=== PATIENT | male | born 1950 | race Caucasian/White ===

== ENCOUNTER 2017-09-01 01:43 | Inpatient (IN) | payer OTHER, MEDICARE ==
[~2017-09-01] VITALS: Ht 175.3 cm; Wt 85.3 kg
[~2017-09-01 01:43] MED LIST: ASPIRIN EC81 M1 PO; C-10001000 MG PO; FINASTERIDE5 M1 PO; FOLIC ACID0.4 M1 PO; GLUCOSAMINE-CH1 EA33 PO; HUMIRA PEN40 MG/0.8 SC; LIPITOR10 M1 PO; METHOTREXATE2.5 M2 PO; MULTIVITAMINS1 EAC9 PO; PREDNISONE5 M1 PO
[2017-09-01] MEDS ORDERED: PERCOCET 5-3251 EACH PO (12:35)
[2017-09-01] MEDS ORDERED: ELIQUIS2.5 M1 PO (12:35)
--- NOTE | 2017-09-01 12:38 | Patient Discharge Instructions ---
Discharge Instructions General Discharge Information You were seen/treated for: Left knee pain related to unilateral primary osteoarthritis You had these procedures: Left total knee replacement Watch for these problems: Increasing pain despite the use of pain medication Increasing redness, warmth or swelling Drainage of any type from incision Inability to bear weight on operative leg Persistent nausea and vomiting Fever greater than 101.5 degrees Call Surgeon to remove: Broadus, two weeks Do not soak the wound: Yes No bath, but you may shower: Yes Other wound care: Please keep wound clean and dry. No ointments or lotions of any type on or near incision at any time. No exceptions. Your dressing will be changed by your nurse on the second day after your surgery. Daily dry dressing changes are recommended each day thereafter. Do not soak your wound in a bath at any time until otherwise indicated by your surgeon. You may shower, please dry wound immediately after shower with a clean towel. Special Instructions: Constipation: Pain medication can cause constipation. Dr. Muir has recommended that you take Colace and miralax each day. You may discontinue this medication if you develop loose stool or diarrhea. If you wish to continue this medication, it is available over the counter. If you are unable to move your bowels after several days, if you are unable to pass gas and are developing bloating, nausea, or vomiting as a result, please contact your doctor. Please avoid taking more than 4000 mg of tylenol (acetaminophen) in one day. If the percocet does not provide enough pain relief, you may take ibuprofen, no more than 1200 mg daily,(400 mg three times per day). Please keep in mind that you are taking a strong blood thinning medication (Eliquis) and ibuprofen or any other NSAID will put you at risk of bleeding and also ulcer development. I have given you an rx for prilosec to be taken daily to protect your stomach from the potential damage ibuprofen can cause. Please contact DR. Muir's office for a refill of pain medication. I have given you enough to last through the weekend, you may need a refill on Wednesday if you are taking the maximum amount recommended. Diet Continue normal diet: Yes Recommended Diet: Regular Activity Full Activity/No Limits: No Activity Self Limited: Yes Pounds, do NOT lift more than: 10 Acute Coronary Syndrome Inclusion Criteria At CO or during hospital stay patient has or had the following: ACS DIAGNOSIS No Discharge Core Measures Meds if any: Prescribed or Continued at Discharge Meds if any: NOT Prescribed or Continued at Discharge Congestive Heart Failure Inclusion Criteria At DC or during hospital stay patient has or had the following: CHF DIAGNOSIS No Discharge Core Measures Meds if any: Prescribed or Continued at Discharge Meds if any: NOT Prescribed or Continued at Discharge Cerebrovascular accident Inclusion Criteria At DC or during hospital stay patient has or had the following: CVA/TIA Diagnosis No Discharge Core Measures Meds if any: Prescribed or Continued at Discharge Meds if any: NOT Prescribed or Continued at Discharge Venous thromboembolism Inclusion Criteria VTE Diagnosis No VTE Type NONE VTE Confirmed by (Test) NONE Discharge Core Measures - Per Current guidelines, there needs to be overlap - treatment for the first 5 days of Warfarin therapy. - If discharged on Warfarin prior to 5 days of - overlap therapy, the patient will need to be - assessed for post discharge needs including - *Post discharge parental anticoagulation - *Warfarin and/or parental anticoagulation education - *Follow up date to check INR post discharge At least 5 days overlap therapy as Inpatient No Meds if any: Prescribed or Continued at Discharge Note: Overlap Therapy is Warfarin and Anticoagulant Meds if any: NOT Prescribed or Continued at Discharge
--- NOTE | 2017-09-01 12:40 | Surgical Discharge Summary ---
Visit Information Visit Dates Admission Date: 09/01/17 History of Present Illness Chief Complaint: Left knee pain related to unilateral primary osteoarthritis Surgical History Pertinent Surgical History: non-contributory Review of Systems: See H&P Hospital Course Course Attending Physician: Wood JORGENSEN,Mauro Wing Primary Care Physician: Patric Tierney MD Hospital Course: Patient was admitted to the hospital for an elective total joint replacement. The procedure was tolerated well and patient was transferred to a general surgical floor. Diet was advanced and tolerated, and the patient voided spontaneously. The patient was evaluated and treated by physical therapy. At the time of hospital discharge, the vital signs were stable, neurovascular status was intact, and pain was controlled with the use of oral pain medications. Allergies: Coded Allergies: No Known Allergies (08/19/17) Disposition Summary Disposition Principal Diagnosis: Left knee unilateral primary osteoarthritis Additional Diagnosis: None Discharge Disposition: home health services Discharge Instructions General Discharge Information Code Status: Full Code Patient's Diet: Regular, advance as tolerated Patient's Activity: Weight-bear as tolerated Follow-Up Instructions/Appts: Follow-up with Dr. Muir in 2 weeks from date of surgery. Please call office to arrange and/or confirm this appointment Medications at Discharge Discharge Medications: Stop taking the following medications: Adalimumab (Humira Pen) 40 MG/0.8 ML PEN.IJ.KIT Inject into fatty tissue Q3W Methotrexate (Methotrexate) 2.5 MG TABLET ORAL EVERY WEDNESDAY Aspirin (Ecotrin*) 81 MG TABLET.DR COREAS DAILY Continue taking these medications: Prednisone (Prednisone) 5 MG TABLET 1 Tablet ORAL DAILY Atorvastatin Calcium (Lipitor) 10 MG TABLET 1 Tablet ORAL DAILY Finasteride (Finasteride) 5 MG TABLET 1 Tablet ORAL DAILY Folic Acid (Folic Acid) 0.4 MG TABLET 1 Tablet ORAL DAILY Ascorbic Acid (C-1000) 1,000 MG TABLET 1 Tablet ORAL DAILY Glucosamine/Chondro Perdomo A (Glucosamine-Chondroitin Tab) (Unknown Strength) TABLET Unknown Dose ORAL DAILY Multiple Vitamin (Multivitamins) 1 EACH TABLET 1 Tablet ORAL DAILY Start taking the following new medications: Apixaban (Eliquis) 2.5 MG TABLET 1 Tablet ORAL TWICE DAILY Qty = 84 No Refills Oxycodone HCl/Acetaminophen (Percocet 5-325 MG Tablet) 5 MG-325 MG TABLET 1-2 Tablet ORAL EVERY 4-6 HOURS as needed for PAIN Qty = 36 No Refills
--- NOTE | 2017-09-01 12:41 | Admission Core Measures ---
Acute Coronary Syndrome (CM) ACS Core Measures Acute Coronary Syndrome Diagnosis No Congestive Heart Failure (NEW) CHF Core Measures Congestive Heart Failure Diagnosis No Cerebrovascular Accident (NEW) CVA Core Measures CVA/TIA Diagnosis No Venous Thromboembolism VTE Core Wing (View Protocol) VTE Risk Factors Surgery No Mechanical VTE Prophylaxis d/t N/A MechProphylax Ordered No VTE Pharm Prophylaxis d/t NA PharmProphylax ordered Problem List As ranked by this Provider includes Assessment & Plan 1. Unilateral primary osteoarthritis, left knee HOME MEDS Home Med List Adalimumab (Humira Pen) 40 MG/0.8 ML PEN.IJ.KIT 1 SYR SC Q3W RA (Reported) Apixaban (Eliquis) 2.5 MG TABLET 1 TAB PO BID anticoagulation Ascorbic Acid (C-1000) 1,000 MG TABLET 1 TAB PO DAILY SUPPLEMENT (Reported) Aspirin (Ecotrin*) 81 MG TABLET.DR 1 TAB PO DAILY HEART/BLOOD (Reported) Atorvastatin Calcium (Lipitor) 10 MG TABLET 1 TAB PO DAILY CHOLESTEROL ( Reported) Finasteride 5 MG TABLET 1 TAB PO DAILY PROSTATE (Reported) Folic Acid 0.4 MG TABLET 1 TAB PO DAILY SUPPLEMENT (Reported) Glucosamine/Chondro Perdomo A (Glucosamine-Chondroitin Tab) (Unknown Strength) TABLET (Unknown Dose) PO DAILY SUPPLEMENT (Reported) Methotrexate 2.5 MG TABLET 1 TAB PO QWED RA (Reported) Multiple Vitamin (Multivitamins) 1 EACH TABLET 1 TAB PO DAILY SUPPLEMENT ( Reported) Oxycodone HCl/Acetaminophen (Percocet 5-325 MG Tablet) 5 MG-325 MG TABLET 1-2 TAB PO Q4-6 PRN PAIN Prednisone 5 MG TABLET 1 TAB PO DAILY RA (Reported)
[2017-09-01 14:30] VITALS: BP 110/70
--- NOTE | 2017-09-01 15:01 | PN- Orthopedic ---
Subjective Subjective: Post op check. Pt received on general surgical floor. Is presently without complaints of pain. Denies chest pain, shortness of breath and difficulty breathing. Denies nausea and vomitting. Has yet to eat. Has yet to ambulate. Has tesfaye cathter. Objective Vital Signs and I&Os HR: 60 RR: 20 O2: 95% on room air TEMP: 97.7 oral BP: 110/70 Physical Exam: General: Alert and oriented x3, no acute distress Cards: RRR, s1s2 Pulm: CTA bilaterally ABD: Non-tender, non-distended Extremities: Moves all extremities, distal sensations grossly intact. Motor 5/ 5 in plantar and dorsi flexion. Skin warm and well perfused. DP pulses palpable bilaterally. Bilateral calves soft and non-tender Surgical site: Left knee. Dressing dry and intact. ON Q in place, no evidence of leaking. No jarrod. Assessment/Plan Assessment/Plan This is a 67 year old male, POD 0, s/p L TKR. PMH signficant for BPH and RA -RA: Hold anti-rheumatics for at least two weeks -BPH: Continue finasteride -POST OP: -abx ppx: Ancef 2 grams q8 hrs for 2 additional doses -pain: iv acetaminophen atc, oxycodone prn and morphine for breakthrough, on Q till wednesday -diet: Reg, advance as tolerated -dvt ppx: eliquis 2.5 bid to start tomorrow -activity: OOB, wbat -dressing: Keep clean and dry, will change on POD 2 Dispo planning: Likely home with hhs on POD 3 Core Measures Venous Thromboembolism VTE Risk Factors Surgery No Mechanical VTE Prophylaxis d/t N/A MechProphylax Ordered No VTE Pharm Prophylaxis d/t NA PharmProphylax ordered
[2017-09-01 16:00] VITALS: BP 100/60
[2017-09-01 18:24] VITALS: BP 102/60
[2017-09-01 20:22] VITALS: BP 100/60
[2017-09-01 23:58] VITALS: BP 118/60
[2017-09-02] VITALS (7 sets, daily range): BP systolic 90–142; BP diastolic 50–72
--- NOTE | 2017-09-02 06:35 | Operative Report ---
Operative/Inv Procedure Report Surgery Date: 09/01/17 Name of Procedure: Left total knee arthroplasty Pre-Operative Diagnosis: Left knee rheumatoid arthritis Post-Operative Diagnosis: rheumatoid arthritis left knee Estimated Blood Loss: 50ml to 100ml Surgeon/Lpn Medical Assistant: Wood JORGENSEN,Mauro Wing Anesthesia: general endotracheal tube (spinal) Operative/Procedure Note Note: Patient was brought to the operating room and given a spinal anesthetic and sedation and then 2 g of Kefzol antibiotics. He also received a gram of transemic acid. The left lower extremity was prepped and draped in the usual sterile fashion and was actually prepped by the physicians prior to the normal prep and drape. Tourniquet was placed around left upper thigh. We did use a lower leg page to keep the knee in a flexed position during the procedure. An incision was made about 8 cm long midline. This was carried down to the extensor mechanism. A medial flap was created. As mentioned earlier the tourniquet was inflated to [address] that way for about 70 minutes. A medial parapatellar approach was carried out. A medial release was carried out all the way around to the posterior medial tibia. The anterior horns of the menisci and the fat pad and the ACL PCL and the soft tissue on the anterior aspect of the distal femur all resected. He did have a number of loose bodies that were removed from the joint. He did have hypertrophic synovitis that was excised. He had severely large osteophytes they were all removed. We then used our initial drill and entered the intramedullary canal of the femur and then the tibia sequentially. The flexible IM was placed up the femur with the appropriate cutting jig on the end of the femur. We cut the femur at 6 of valgus. Initial distal femoral cut was made. Sizing was then carried out of the femur and a size 7 femur seemed to be the most appropriate size. This was verified with the appropriate gauges. We then placed appropriate cutting block on the femur again checked that we would not notch the femur and an anterior posterior chamfer cuts were made. We then proceeded to cut the intercondylar notch box for the posterior stabilized component. After completing the femur addressed the tibia placed a retractor in the posterior aspect of the joint bringing the tibia forward. We then went ahead and referenced off the least affected condyle at 9 mm made our cut in a 3 posterior slope. After completing the tibial cut we sized the tibia. A size 7 seemed to be the most appropriate size for this patient. After completing this went ahead and removed osteophytes from the posterior aspect of the femur by using a lamina arnp. We also did a posterior capsular release. So posterior capsular release and a 10 mm cut on the distal femur were used to control his flexion contracture. After completing this we then placed a tibial baseplate 9 mm poly-femoral component took the knee through range of motion left the tibia oral rotate to the femur marked the tibia and then prepared the tibia with the appropriate finned punch. After completing the tibia thorough irrigation was carried out in the knee we then addressed the patella. Using the patella reamer we then reamed the patella to the appropriate size for our component. Patella to use for this patient was an asymmetric patella size 38. After completing this and drilling the lug holes for the patella medializing the patella. Thorough pulsed irrigation was carried out the components were cemented in place starting with the tibia than the femur and then the patella. extraneous cement cement removed. The knee was taken through range of motion again and it seemed that the 9 mm polyethylene insert was the most appropriate size for the patient. After snapping the polyethylene into place. Knee taken through range of motion stability was excellent range of motion was excellent. We then went ahead and let the tourniquet down coagulated any little bleeding areas. Posterior wound in a layered fashion I did do an injection in the knee in 3 levels using morphine and Marcaine and Toradol. After was fully closed dry sterile dressings were applied was sent to recovery room in stable condition all complications and a dictation by Dr. Muir thank you
--- NOTE | 2017-09-02 06:39 | PN- Orthopedic ---
Subjective Subjective: Patient states he is doing well after his knee replacement on the left side he has minimal pain he was up with physical therapy ready and is doing extremely well he's eating and drinking well. Objective Vital Signs and I&Os Vital Signs Date Time Temp Pulse Resp B/P B/P Pulse O2 O2 Flow FiO2 Mean Ox Delivery Rate 09/02 0406 97.9 61 18 116/64 92 Room Air 09/01 2358 98.1 58 20 118/60 91 Room Air 09/01 2022 97.9 62 20 100/60 93 Room Air 09/01 1824 98.7 66 20 102/60 92 Room Air 09/01 1600 99.5 62 20 100/60 92 Room Air 09/01 1430 97.7 60 20 110/70 95 Room Air Intake & Output 09/02 0800 09/02 0000 09/01 1600 09/01 0800 09/01 0000 08/31 1600 Intake Total 500 Output Total 650 200 Balance -150 -200 Intake, IV 300 Intake, Oral 200 Output, Urine 650 200 Patient 188 lb Weight Weight Standing Scale Measurement Method Physical Exam: Patient is very comfortable postoperative day 1 status post left total knee arthroplasty. His dressing is dry he's having minimal discomfort a pain level II out of 10. His toes are fully mobile he has near full extension and about 90 intact. Assessment/Plan Assessment/Plan Doing well status post left total knee arthroplasty. Plan at this point time is for discharge when he is cleared by physical therapy used to go home which I recommend he does not need to go to a rehabilitation facility. His estrella will come out in 2 weeks. He will need to be on prophylactic DVT prophylaxis. He will require physical therapy at home. He's going to ambulate weightbearing as tolerated. He can move his knee through any range of motion. Core Measures Venous Thromboembolism VTE Risk Factors Surgery No Mechanical VTE Prophylaxis d/t N/A MechProphylax Ordered No VTE Pharm Prophylaxis d/t NA PharmProphylax ordered Attending MD Review Statement Attending Statement Attending MD Statement: examined this patient
--- NOTE | 2017-09-02 08:50 | Event Note ---
See Addendum Event Note Event Note: RAPID RESPONSE: pt in stairwell working with PT when he felt light headed, dizzy, pre syncope. sat down in chair and felt better. no cp, no loc, no confusion. we were able to carry the pt up the stairs in his chair to a stretcher, lay him flat and he was feeling better. bp 84/40, hr 47. medical team there as well. pt asymptomatic after laying flat, given 500bolus ns, will cont to monitor. altonley vasovagal episode. previous meds oxycodone 5mg prior to PT. no other complaints.
[2017-09-02 09:32] LABS: ABSOLUTE BASOPHIL COUNT 0 /CUMM (0.0-0.2); ABSOLUTE EOSINOPHIL COUNT 0 /CUMM (0.0-0.7); ABSOLUTE GRANULOCYTE CT 11.5 /CUMM (1.4-6.5); ABSOLUTE LYMPH COUNT 2.8 /CUMM (1.2-3.4); ABSOLUTE MONOCYTE COUNT 1.2 /CUMM (0.10-0.60); BASOPHIL % 0.3 % (0.0-2.0); EOSINOPHIL % 0.1 % (0-5); GRANULOCYTE % 73.6 % (42.2-75.2); HEMATOCRIT 34.6 % (42-52); MEAN CORPUSCULAR HGB 30.1 PG (27.0-31.0); MEAN CORPUSCULAR HGB CONC 33.7 G/DL (33.0-37.0); MEAN CORPUSCULAR VOLUME 89.4 FL (80.0-94.0); MEAN PLATELET VOLUME 8.8 FL (7.4-10.4); PLATELET COUNT 205 /CUMM (130-400); RBC DISTRIBUTION WIDTH 13.1 % (11.5-14.5); RED BLOOD CELL CT 3.87 /CUMM (4.70-6.10); WHITE BLOOD CELL COUNT 15.6 /CUMM (4.8-10.8)
[2017-09-03 03:00] VITALS: BP 122/60
[2017-09-03 05:56] VITALS: BP 140/82
--- NOTE | 2017-09-03 07:09 | PN- Student ---
Subjective Subjective: "I'm feeling better, but I'm concerned because my thigh is rock hard." Pt states he has 2/10 left knee pain when supine and 6/10 pain with ambulation. Pt had near syncopal episode yesterday while working with PT but states he is feeling much better since fluid bolus/lying supine. Pt tolerating regular diet well. + flatus, - BM. Banks removed yesterday, pt states he is urinating without difficulty. Pain well controlled with medications. Denies: H/A, vision changes, SOB, chest pain, N/V/D, or paresthesias. Objective Objective: GEN: Pt lying supine in bed, NAD, A+Ox3. Pleasant affect. RESP: Good resp effort, CTAB. CARDIO: RRR, no MRG, S1/S2 audible. ABD: Soft, NTND, normoactive BS audible. MUSC: Large dressing in place on L knee, wrapped in MARI bandage, ice pack placed on top. Bruising noted above dressing on lateral aspect of mid upper leg. Upper leg is slightly more firm when compared to right upper leg. Pt able to move hip, knee ankle and toes. Distal pulses +2, cap refill < 2 sec. NEURO: Sensation intact throughout. Results Results: Laboratory Tests 09/02/17 0848: Anion Gap 12, Estimated GFR > 60, BUN/Creatinine Ratio 21.3, CBC w Diff NO MAN DIFF REQ, RBC 3.87 L, MCV 89.4, MCH 30.1, MCHC 33.7, RDW 13.1, MPV 8.8, Gran % 73.6, Lymphocytes % 18.2 L, Monocytes % 7.8, Eosinophils % 0.1, Basophils % 0.3 , Absolute Granulocytes 11.5 H, Absolute Lymphocytes 2.8, Absolute Monocytes 1.2 H, Absolute Eosinophils 0, Absolute Basophils 0 Microbiology 09/01 0805 URINE OR: Urine Culture - RES Assessment/Plan Assessment: Loco is a 67 yo M POD-2 s/p left TKR. Patient appears to be recovering well from the procedure. He has mild-moderate pain in his left knee/upper leg which is expected in this phase of his recovery. Pt has no questions or concerns at this time. Plan: - Continue regular diet. - PT consult this am. - DVT prophylaxis (2.5 apixaban BID). - Change dressing today.
[2017-09-03] MEDS ORDERED: ELIQUIS2.5 M1 PO ×2 (10:55→11:01)
[2017-09-03] MEDS ORDERED: PERCOCET 5-3251 EACH PO ×3 (10:55→11:05)
[2017-09-03] MEDS ORDERED: PRILOSEC OTC20 M1 PO (11:00)
== END 2017-09-03 12:00 | disposition home health service (06) | DRG 470 ==
LOC: SDA 01:43 → 2NA 01:43 → SDA 07:00 → ENRESERV 12:15 → ENTRNSPT 13:32 → EDTRNSPTSTS 13:51 → 2NA 14:00 → CMPTRNSPT 14:11 → ENPENDDIS 09-03 11:06 → ENTRNSPT 09-03 11:44 → EDTRNSPT 09-03 11:59 → EDTRNSPTSTS 09-03 11:59 → 2NA 09-03 12:00 → CMPTRNSPT 09-03 12:21
PROVIDERS: Nurse Practitioner
PROC: 0SRD0J9 Replacement of Left Knee Joint with Synthetic Substitute, Cemented, Open Approach (ICD-10-PCS; principal; 2017-09-01)
DX: M17.12 Unilateral primary osteoarthritis, left knee (principal); M25.752 Osteophyte, left hip; M65.862 Other synovitis and tenosynovitis, left lower leg
CPT/HCPCS: 2NASP; 36415; 82436; 87086; 88305; 93005; 93010; 97110-GO; 97116-GO; 97161-GP; 97530-GO; C1713; C9399; J0131; J0690; J1100; J1885; J2550; J2795; J3490; J7040; J7042; J7512